=== PATIENT | female | born 1935 | race Caucasian/White ===

== ENCOUNTER 2016-12-31 07:21 | Day surgery (SDC) | payer MEDICARE ==
--- NOTE | 2016-12-31 06:29 | History and Physical Report ---
DATE: 12/31/2016. CHIEF COMPLAINT: This is a patient with an implanted spinal opioid infusion system since 2010. HISTORY OF PRESENT ILLNESS: Over the lat number of refills battery depletion has been identified. She is here for a pump battery replacement with refill. PAST MEDICAL HISTORY: Hypertension, cardiac arrhythmia. PAST SURGICAL HISTORY: To be provided. MEDICATIONS ON ADMISSION: To be provided. ALLERGIES: To be provided. SOCIAL HISTORY: Noncontributory. FAMILY HISTORY: Diabetes, hypertension. REVIEW OF SYSTEMS: The patient seems appropriate and in no acute distress. The remainder of the systems review shows reflux, degenerative arthritis. PHYSICAL EXAMINATION: General: Height and weight are not known. Vital Signs: Unavailable. HEENT: Within normal limits. Lungs: Clear. Heart: Regular rate and rhythm. Abdomen: Nontender. Musculoskeletal: Examination of the musculoskeletal system shows the pump in the posterior gluteal margin. The incision is intact. The midline incision with catheter placement is intact. The primary region of pain appears to be diffusely throughout the low back and bilateral hips and legs. Ambulation: No assistive device utilized. Neurologic: Cranial nerves are intact. IMPRESSION: 1. INTRACTABLE RADICULITIS, ICD-10 CODE M54.16 AND M54.17. 2. IMPLANTED SPINAL OPIOID INFUSION SYSTEM WITH HYDROMORPHONE WITH BATTERY DEPLETION. PLAN: The patient is here, on an outpatient basis, for pump battery change. No changes will be made to her pump infusion parameters. The procedure will be considered outpatient. An overnight stay will not be necessary. PARAG CHAMPAGNE D.O. Date & Time JOB NUMBER: [id number] cc: Dr. Bernardo BERNSTEIN
[~2016-12-31 07:21] MED LIST: ACETAMINOPHEN 1,000 MG/100 ML BTL IV ONE; CLINDAMYCIN 600MG/50ML PREMIX 600 MG/50 ML BAG IVPB ONE; FAMOTIDINE 20MG TABLET PO ONE; HYDROMORPHONE HCL IV ONE; HYDROMORPHONE HCL/PF 0.002 MG in 0.9 % SODIUM CHLORIDE 10ML VIA 0.998 ML IVP ONE; MECLIZINE 25 MG TABLET PO ONE; METOCLOPRAMIDE 10 MG TABLET PO ONE; SODIUM CHLORIDE 0.9% IV ONE
[2016-12-31] MEDS ORDERED: CLINDAMYCIN 600MG/4 ML VIAL IVPB ONE (11:20)
[2016-12-31] MEDS ORDERED: BUPIVACAINE 0.5% W/EPI MPF 30 ML VIAL IVP ONE (11:20)
[2016-12-31] MEDS ORDERED: LIDOCAINE 1% W/EPI 1:200,000 MPF 30ML SQ ONE (11:20)
[2016-12-31] MEDS ORDERED: LIDOCAINE 2% MDV (20MG/ML) 20ML VIAL IV ONE (15:10)
[2016-12-31] MEDS ORDERED: MIDAZOLAM HCL 2MG/2ML VIAL IV ONE (15:10)
[2016-12-31] MEDS ORDERED: ALFENTANIL HCL 500 MCG/1ML, 2ML AMP IV ONE (15:10)
[2016-12-31] MEDS ORDERED: *PACU ONLY* KETAMINE HCL 10 MG/ML (20ML) VIAL IV ONE (15:10)
[2016-12-31] MEDS ORDERED: PROPOFOL 10 MG/ML VIAL IV ONE (15:10)
--- NOTE | 2016-12-31 21:24 | Operative Note - [place] ---
DATE OF SURGERY: 12/31/16 PREOPERATIVE DIAGNOSES: 1. LUMBAR RADICULITIS, ICD-10 CODE = M54.16, M54.17. 2. INTRASPINAL OPIOID INFUSION SYSTEM HYDROMORPHONE BATTERY DEPLETION. OPERATION: 1. INCISION, SUBCUTANEOUS DISSECTION, REMOVAL AND REPLACEMENT OF PROGRAMMABLE PUMP AT RIGHT POSTERIOR GLUTEAL MARGIN. 2. DIAGNOSTIC MYELOGRAPHY WITH RADIOLOGIC SUPERVISION AND INTERPRETATION. 3. REPROGRAMMING PUMP TO DELIVER CONTINOUS INFUSION AT 0.5 MG HYDROMORPHONE PER DAY. SURGEON: PARAG CHAMPAGNE D.O. ANESTHESIA: LOCAL SEDATION. ANESTHESIA PROVIDER: DOREEN MARTINEZ CRNA INDICATIONS: This patient presents with a history of intractable lumbar radiculitis and a spinal infusion system with Hydromorphone. At the last refill , it was noted battery depletion. She is here for pump battery replacement. PROCEDURE: Intravenous line, vital sign monitoring, IV sedation. Prepped and draped in sterile technique under imaging. The pump was identified in the right posterior gluteal margin. Skin infiltrated. Incision made and subcutaneous dissection was conducted to the Dacron sheath. It was opened and the pump exteriorized. The pump was then from the internal catheter. Inspection of the catheter showed full integrity. No replacement performed. A new pump placed onto the field prefilled with Hydromorphone at 0.2 mg per mL. The pump was then interfaced with the indwelling catheter. Using access port, 1 mL of catheter contents was aspirated clearing the catheter of opioid and CFS mixture. Antibiotic irrigation and Bovie for hemostasis. The pump was then placed into the existing pouch and sheath then a 24-gauge Ferris needle was inserted into the access port and contrast was injected. A resulting myelogram showed contrast moving through the internal pump. Radiologic supervision and interpretation identified the contrast flow characteristics with the tip of the catheter identified at T12-L1 with smooth linear flow noted. Full integrity identified. The pump was then programmed to deliver by continuous infusion Hydromorphone at 0.5 mg per day. The Dacron sheath was closed with nonabsorbable suture. The incision was closed with Vicryl and a running subcuticular Vicryl for skin. A Dermabond closure system was then placed. She was transported to the Recovery Room stable showing no side-effects from the procedure or the sedation. DISCHARGE INSTRUCTIONS: 1. The site is to remain clean and dry. No showering or bathing until she is seen in the office, although the Dermabond will allowing showering in 24 hours. She will be seen in the office in five to seven days to evaluate the site and functionality. 2. An antibiotic prescribed, Levaquin 500 mg once a day for 14 days. If she has a problem with the antibiotics, she is to contact the Clinic for substitution. Spinal opioid side effects including respiratory depression, nausea, vomiting, constipation, urinary retention, lightheadedness, or rash have been discussed and reviewed. All other instructions provided. Numbers to contact with problems given. She was then discharged. CC: DR. PARRISH JOB NUMBER: [id number] MTDD
== END 2016-12-31 10:25 | disposition home or self-care (01) ==
LOC: SUR 07:21
PROVIDERS: ATTEND Pain Medicine Interventional Pain Medicine
DX: T85.890A Other specified complication of nervous system prosthetic devices, implants and grafts, initial encounter (principal); M54.16 Radiculopathy, lumbar region; M54.17 Radiculopathy, lumbosacral region; I10 Essential (primary) hypertension; I49.9 Cardiac arrhythmia, unspecified; F17.200 Nicotine dependence, unspecified, uncomplicated; E03.9 Hypothyroidism, unspecified; E78.00 Pure hypercholesterolemia, unspecified; Z79.01 Long term (current) use of anticoagulants
CPT/HCPCS: 62362; 00300; 62367; Q9967; J1170